=== PATIENT | female | born 1990 | race Caucasian/White ===

== ENCOUNTER 2019-02-01 06:59 | Day surgery (SDC) | payer OTHER ==
[2019-01-28 15:31] VITALS: BMI 38.0
[~2019-02-01 06:59] MED LIST: DEXAMETHASONE SOD PHOSPHATE 10 MG/ML 1 ML VIAL IV ONE; HEPARIN SODIUM,PORCINE 5,000 UNIT/ML 1 ML VIAL SQ ONE; KETOROLAC 30 MG/ML 1 ML VIAL IVP SCH; LACTATED RINGERS 1,000 ML IV SCH; LIDOCAINE 1% 20 ML VIAL (10MG/ML) FOR IV START INTRADERMA PRN; METOCLOPRAMIDE 5 MG/ML 2 ML VIAL IVP PRN; ONDANSETRON 4 MG/2 ML VIAL IVP ONE; SCOPOLAMINE 1.5MG/72HR PATCH TRANSDERM ONE; ceFAZolin IN SWFI 2 GM/20 ML SYRINGE IVP ONE
--- NOTE | 2019-02-01 08:34 | P.GSHP ---
History of Present Illness H&P Date: 02/01/19 Chief Complaint: Incarcerated ventral hernia This a 28-year-old female who presents today for laparoscopic robotic-assisted repair of incarcerated ventral hernia. Patient developed a mass after her which was located just above her umbilicus. Past Medical History Additional Past Medical History / Comment(s): hx. heart murmur, anemia, asthma as a child History of Any Multi-Drug Resistant Organisms: None Reported Past Surgical History: Section Additional Past Surgical History / Comment(s): wisdom teeth removed, C/S 7 weeks ago Past Anesthesia/Blood Transfusion Reactions: Previous Problems w/ Anesthesia Additional Past Anesthesia/Blood Transfusion Reaction / Comment(s): epidural started wearing off during C/S Smoking Status: Current every day smoker - Past Family History Mother Family Medical History: No Reported History Medications and Allergies Home Medications Medication Instructions Recorded Confirmed Type Ferrous Sulfate [Feosol] 325 mg PO BID 01/28/19 02/01/19 History Allergies Allergy/AdvReac Type Severity Reaction Status Date / Time Penicillins Allergy Unknown Verified 02/01/19 07:09 Childhood Surgical - Exam Vital Signs Temp Pulse Resp BP Pulse Ox 99.1 F 77 16 119/71 95 02/01/19 07:20 02/01/19 07:20 02/01/19 07:20 02/01/19 07:20 02/01/19 07:20 - General well developed, well nourished, no distress - Eyes PERRL - ENT normal pinna - Neck no masses - Respiratory normal expansion - Cardiovascular Rhythm: regular - Abdomen Abdomen: soft, non tender Hernia: incarcerated (Incarcerated ventral hernia, 3 cm in the suprabuccal position) - Integumentary no rash Assessment and Plan Assessment: Incarcerated ventral hernia. We'll perform laparoscopic robotic-assisted repair.
[2019-02-01] MEDS ORDERED: PROPOFOL 10 MG/ML 20 ML VIAL IV ONE (09:02)
[2019-02-01] MEDS ORDERED: ROCURONIUM BROMIDE 10 MG/ML 10 ML VIAL IV ONE (09:02)
[2019-02-01] MEDS ORDERED: HYDROmorphone (PF) 1 MG/ML ONE (09:02)
[2019-02-01] MEDS ORDERED: MIDAZOLAM 2 MG/2 ML VIAL ONE (09:02)
[2019-02-01] MEDS ORDERED: KETOROLAC 30 MG/ML 1 ML VIAL ONE (09:02)
[2019-02-01] MEDS ORDERED: fentaNYL (PF) 50 MCG/ML 2 ML AMP ONE (09:02)
[2019-02-01] MEDS ORDERED: NEOSTIGMINE 1 MG/ML 10 ML VIAL ONE (09:02)
[2019-02-01] MEDS ORDERED: GLYCOPYRROLATE 0.2 MG/ML 2 ML VIAL ONE (09:02)
[2019-02-01] MEDS ORDERED: LIDOCAINE 1% INJ 10MG/ML (20 ML MDV) ONE (09:02)
[2019-02-01] MEDS ORDERED: BUPIVACAINE (PF) 0.25% 30 ML VIAL SQ ONE ×2 (09:48)
[2019-02-01 10:38] VITALS: TEMP 98.4
--- NOTE | 2019-02-01 10:43 | P.OP ---
Date of Procedure: 02/01/19 Preoperative Diagnosis: Incarcerated ventral hernia Postoperative Diagnosis: Incarcerated ventral hernia Adhesions Procedure(s) Performed: Laparoscopic robotic-assisted repair of incarcerated ventral hernia Anesthesia: ORSY Surgeon: Zenon Sexton Pathology: other (Omentum) Condition: stable Disposition: PACU Description of Procedure: The patient was placed on the operating table in the supine position. He received general anesthesia. His abdomen was prepped and draped usual fashion. Using a 5 mm optical trocar under direct visualization the peritoneal cavity was entered in the left upper quadrant. The abdomen was then insufflated. The laparoscope was placed back into the perineal cavity. Next a 8 mm robotic trocar was placed in the left lower quadrant and a 12 mm robotic trocar was placed in the left lateral position. The original 5 mm trocar was exchanged for a 8 mm robotic trocar. The patient's placed in the left side up position. And the patient was docked to the robot. The patient was noted to have adhesions in the lower midline related to her previous . The adhesions were lysed using sharp dissection electrocautery. The incisional hernia was visualized. The incarcerated omentum was dissected free and transected with left cautery. The specimens of pathology. Using hook cautery the peritoneum over the incisional hernia was excised. The fascial opening was repaired using 0V LOC suture. Next a piece of 11 cm round ventral light ST mesh was placed into the. Cavity and secured with 2 OV lock suture. The patient was undocked the robot. The needles were retrieved. The fascia of the 12 mm trocar site was closed with 0 Ethibond suture. Skin was closed interrupted 3-0 Monocryl suture. Dermabond dressings was applied. Patient tolerated procedure well and was sent to recovery room stable condition.
[2019-02-01] MEDS: HYDROmorphone 0.5 MG/0.5 ML SYRINGE IVP PRN ×3 (10:50→11:08)
[2019-02-01 11:01] VITALS: RESP 16
[2019-02-01] MEDS ORDERED: HYDROcodone/APAP 5-325MG 1 EACH TAB PO ONE (12:00)
[2019-02-01 12:23] VITALS: BP 162/99; PULSE 73
== END 2019-02-01 12:45 | disposition home or self-care (01) ==
LOC: OR 06:59
PROVIDERS: ATTEND Surgery
DX: K43.6 Other and unspecified ventral hernia with obstruction, without gangrene (principal); F17.200 Nicotine dependence, unspecified, uncomplicated; Z88.0 Allergy status to penicillin; E66.9 Obesity, unspecified; Z68.38 Body mass index [BMI] 38.0-38.9, adult
CPT/HCPCS: 81025; 88302; 49653; C1781; J2250; J1644; J1100; J2710; J2405; J2001; J3010; J1885; J1170 ×2; J2704

== ENCOUNTER 2024-04-07 02:20 | Emergency (ER) | payer OTHER ==
[2024-04-07 02:25] VITALS: PULSE 75
[2024-04-07] MEDS: LIDOCAINE VISCOUS 2% 15 ML CUP MUCOUS MEM ONE (03:25)
--- NOTE | 2024-04-07 03:27 | ED ---
ENT HPI - General Chief complaint: Dental/Oral Stated complaint: Oral Pain Time Seen by Provider: 04/07/24 03:25 Source: patient, RN notes reviewed Mode of arrival: ambulatory Limitations: no limitations - History of Present Illness Initial comments: 33-year-old female presenting to the ER with a chief complaint of dental pain. Patient states they are scheduled to have teeth pulled and dentures fitted by dentist in [facility]. They states they accidentally missed their appointment as it was scheduled extremely far out from when they made the appointment that they missed it. He states for the past couple of days they have been having an increase in dental pain. No fevers, tongue swelling or throat swelling. No sore throat. Patient was started on clindamycin per see PCP yesterday. Patient is taking [place] 10s prescribe a pain management. They took 2 [place] tens and an ibuprofen prior to arrival. Patient has tried [id number] Orajel and numbing mouthwashes without relief. Patient states they woke up this evening crying due to the pain. Which brought him to the ER. No other complaints. - Related Data Home Medications Medication Instructions Recorded Confirmed Cetirizine HCl [Zyrtec] 10 mg PO DAILY 08/27/22 08/29/22 Dextroamphetamine/Amphetamine 30 mg PO TID 08/27/22 08/29/22 [Adderall] Fexofenadine HCl [Yani Allergy] 180 mg PO DAILY 08/27/22 08/29/22 Meloxicam [Mobic] 15 mg PO DAILY 08/27/22 08/29/22 Memantine [Namenda] 5 mg PO BID 08/27/22 08/29/22 Montelukast [Singulair] 10 mg PO DAILY 08/27/22 08/29/22 Testosterone 0.35 ml IM Q96H 08/27/22 08/29/22 busPIRone HCL [Buspar] 30 mg PO TID 08/27/22 08/29/22 Allergies Allergy/AdvReac Type Severity Reaction Status Date / Time erythromycin base Allergy Rash/Hives Verified 04/07/24 08:49 Penicillins Allergy Unknown Verified 04/07/24 02:25 Childhood Review of Systems ROS Statement: Those systems with pertinent positive or pertinent negative responses have been documented in the HPI. ROS Other: All systems not noted in ROS Statement are negative. Past Medical History Past Medical History: Asthma, Hearing Disorder / Deafness, Hyperlipidemia Additional Past Medical History / Comment(s): Hx heart murmur, anemia, asthma as a child. States one Dr said she had an enlarged heart and another one said she didn't, was supposed to see a Delicatessen Department Manager every 6 months but because of Covid she hasnt. Varicose veins. Hyperlipidemia - untreated. States "variable BP, goes high and low. Profuse sweating at times. Sensitive skin. States hearing problems, supposed to wear hearing aids but doesn't. History of Any Multi-Drug Resistant Organisms: MRSA Date of last positivie culture/infection: Unknown MDRO Source:: ingrown hair Past Surgical History: Section, Hernia Repair Additional Past Surgical History / Comment(s): [place] teeth removed. Past Anesthesia/Blood Transfusion Reactions: Previous Problems w/ Anesthesia, Motion Sickness Additional Past Anesthesia/Blood Transfusion Reaction / Comment(s): Epidural started wearing off during Section. Past Psychological History: ADD/ADHD, Anxiety, Depression Smoking Status: Current every day smoker Past Alcohol Use History: None Reported Past Drug Use History: Marijuana - Past Family History Mother Family Medical History: Cancer Additional Family Medical History / Comment(s): Breast cancer. General Exam Limitations: no limitations General appearance: alert, in no apparent distress ENT exam: Present: other (Multiple fractured teeth. Enamel region. No drainable abscess. Oropharynx patent.) Neck exam: Present: normal inspection. Absent: tenderness, meningismus, lymphadenopathy Respiratory exam: Present: normal lung sounds bilaterally. Absent: respiratory distress, wheezes, rales, rhonchi, stridor Cardiovascular Exam: Present: regular rate, normal rhythm, normal heart sounds. Absent: systolic murmur, diastolic murmur, rubs, gallop, clicks Skin exam: Present: warm, dry, intact, normal color. Absent: rash Course Vital Signs 04/07/24 04/07/24 02:22 04:30 Temperature 97.5 F L 97.8 F Pulse Rate 75 75 Respiratory 20 18 Rate Blood Pressure 150/89 139/80 O2 Sat by Pulse 100 98 Oximetry Procedures - Nerve Block Local Anesthetic Used: MARCAINE 0.25% with EPI Amount of anesthesia used: 5 Side: left Intraoral Nerve Block: infraorbital Procedure Successful: Yes Patient Tolerated Procedure: well Medical Decision Making - Medical Decision Making Was pt. sent in by a medical professional or institution ([facility], ELECTRICITY TRADER, urgent care, hospital, or detention...) When possible be specific @ -No Did you speak to anyone other than the patient for history (EMS, parent, family, police, friend...)? What history was obtained from this source @ -No Did you review nursing and triage notes (agree or disagree)? Why? @ -I reviewed and agree with nursing and triage notes Were old charts reviewed (outside hosp., previous admission, EMS record, old EKG, old radiological studies, urgent care reports/EKG's, detention records)? Report findings @ -No old charts were reviewed Differential Diagnosis (chest pain, altered mental status, abdominal pain women, abdominal pain men, vaginal bleeding, weakness, fever, dyspnea, syncope, headache, dizziness, GI bleed, back pain, seizure, CVA, palpatations, mental health, musculoskeletal)? @ -Dental carry, abscess, fractured tooth This is determined to be all- inclusive EKG interpreted by me (3pts min.). @ -None done X-rays interpreted by me (1pt min.). @ -None done CT interpreted by me (1pt min.). @ -None done U/S interpreted by me (1pt. min.). @ -None done What testing was considered but not performed or refused? (CT, X-rays, U/S, la bs)? Why? @ -None What meds were considered but not given or refused? Why? @ -None Did you discuss the management of the patient with other professionals (professionals i.e. [facility], ELECTRICITY TRADER, lab, RT, psych nurse, social security specialist, swiss type screw machine operator, teacher, chief learning officer, family independence case manager)? Give summary @ -No Was smoking cessation discussed for >3mins.? @ -No Was critical care preformed (if so, how long)? @ -No Were there social determinants of health that impacted care today? How? (Homelessness, low income, unemployed, alcoholism, drug addiction, transportation, low edu. Level, literacy, decrease access to med. care, retirement, rehab)? @ -No Was there de-escalation of care discussed even if they declined (Discuss DNR or withdrawal of care, Hospice)? DNR status @ -No What co-morbidities impacted this encounter? (DM, HTN, Smoking, COPD, CAD, Cancer, CVA, ARF, Chemo, Hep., AIDS, mental health diagnosis, sleep apnea, morbid obesity)? @ -None Was patient admitted / discharged? Hospital course, mention meds given and route, prescriptions, significant lab abnormalities, going to OR and other pertinent info. @ -Discharge. 33-year-old female presented to the ER with a chief complaint of dental pain. History and physical exam completed. Vitals within normal limits. Patient is interested in on exam. Exam remarkable for enamel erosion and multiple teeth with fractures present. No drainable abscess. No lower jaw, cheek or tongue swelling. Nerve block placed with success of pain relief. Tylenol 3 starter pack given. Advise close follow-up with dentist. I also advised patient to continue taking clindamycin as prescribed by PCP and complete full course. Strict return parameters discussed. Patient discharged stable condition. Patient reports rest understanding agree with care plan. Case discussed with ED attending, Dr. Arteaga. Undiagnosed new problem with uncertain prognosis? @ -No Drug Therapy requiring intensive monitoring for toxicity (Heparin, Nitro, Insulin, Cardizem)? @ -No Were any procedures done? @ -No Diagnosis/symptom? @ -Dental pain Acute, or Chronic, or Acute on Chronic? @ -Acute Uncomplicated (without systemic symptoms) or Complicated (systemic symptoms)? @ -Uncomplicated Side effects of treatment? @ -No Exacerbation, Progression, or Severe Exacerbation? @ -No Poses a threat to life or bodily function? How? (Chest pain, [place], [place], pneumonia, PE, COPD, DKA, ARF, appy, cholecystitis, CVA, Diverticulitis, Homicidal, Suicidal, threat to staff... and all critical care pts) @ -No Disposition Clinical Impression: Pain, dental Disposition: HOME SELF-CARE Condition: Stable Instructions (If sedation given, give patient instructions): Toothache (ED) Additional Instructions: Continue taking clindamycin as prescribed. Follow-up with dentist. Return to the ER for any new or worsening concerns. Is patient prescribed a controlled substance at d/c from ED?: No Referrals: Roman Garsia DO [Primary Care Provider] - 1-2 days Time of Disposition: 03:56
[2024-04-07] MEDS: LIDOCAINE 1% INJ 10MG/ML (20 ML MDV) SQ ONE (03:43)
[2024-04-07] MEDS: ACET/COD 300 MG/30 MG STARTER PACK 6 TAB BTL PO STA (04:07)
[2024-04-07] MEDS: BUPIVACAIN-EPI 0.25%-1:200,000 30 ML VIAL SQ STA (04:12)
[2024-04-07 04:31] VITALS: BP 139/80; RESP 18; TEMP 97.8
== END 2024-04-07 04:31 | disposition home or self-care (01) ==
LOC: EC 02:20
CPT/HCPCS: 64400; 96372; 99282

== ENCOUNTER 2024-04-07 08:43 | Emergency (ER) | payer OTHER ==
--- NOTE | 2024-04-07 09:10 | ED ---
ENT HPI - General Chief complaint: Dental/Oral Stated complaint: dental pain Time Seen by Provider: 04/07/24 08:49 Source: patient, RN notes reviewed Mode of arrival: ambulatory Limitations: no limitations - History of Present Illness Initial comments: 33-year-old female presents emergency department with chief complaint of dental pain. Patient was seen here is on current clindamycin did receive a dental block but states pain is returned. Unable to get into a dentist today. Patient - Related Data Home Medications Medication Instructions Recorded Confirmed Cetirizine HCl [Zyrtec] 10 mg PO DAILY 08/27/22 08/29/22 Dextroamphetamine/Amphetamine 30 mg PO TID 08/27/22 08/29/22 [Adderall] Fexofenadine HCl [Yani Allergy] 180 mg PO DAILY 08/27/22 08/29/22 Meloxicam [Mobic] 15 mg PO DAILY 08/27/22 08/29/22 Memantine [Namenda] 5 mg PO BID 08/27/22 08/29/22 Montelukast [Singulair] 10 mg PO DAILY 08/27/22 08/29/22 Testosterone 0.35 ml IM Q96H 08/27/22 08/29/22 busPIRone HCL [Buspar] 30 mg PO TID 08/27/22 08/29/22 Allergies Allergy/AdvReac Type Severity Reaction Status Date / Time erythromycin base Allergy Rash/Hives Verified 04/07/24 08:49 Penicillins Allergy Unknown Verified 04/07/24 02:25 Childhood Review of Systems ROS Statement: Those systems with pertinent positive or pertinent negative responses have been documented in the HPI. ROS Other: All systems not noted in ROS Statement are negative. Past Medical History Past Medical History: Asthma, Hearing Disorder / Deafness, Hyperlipidemia Additional Past Medical History / Comment(s): Hx heart murmur, anemia, asthma as a child. States one Dr said she had an enlarged heart and another one said she didn't, was supposed to see a Hired Hand every 6 months but because of Covid she hasnt. Varicose veins. Hyperlipidemia - untreated. States "variable BP, goes high and low. Profuse sweating at times. Sensitive skin. States hearing problems, supposed to wear hearing aids but doesn't. History of Any Multi-Drug Resistant Organisms: MRSA Date of last positivie culture/infection: Unknown MDRO Source:: ingrown hair Past Surgical History: Section, Hernia Repair Additional Past Surgical History / Comment(s): [place] teeth removed. Past Anesthesia/Blood Transfusion Reactions: Previous Problems w/ Anesthesia, Motion Sickness Additional Past Anesthesia/Blood Transfusion Reaction / Comment(s): Epidural started wearing off during Section. Past Psychological History: ADD/ADHD, Anxiety, Depression Smoking Status: Current every day smoker Past Alcohol Use History: None Reported Past Drug Use History: Marijuana - Past Family History Mother Family Medical History: Cancer Additional Family Medical History / Comment(s): Breast cancer. General Exam Limitations: no limitations General appearance: alert, in no apparent distress Head exam: Present: atraumatic, normocephalic, normal inspection Eye exam: Present: normal appearance, PERRL, EOMI. Absent: scleral icterus, conjunctival injection, periorbital swelling ENT exam: Present: mucous membranes moist. Absent: normal exam, normal oropharynx (Edentulous, poor dentition, multiple dental caries and missing dentition, no drainable abscesses) Neck exam: Present: normal inspection, full ROM. Absent: tenderness, meningismus, lymphadenopathy Respiratory exam: Present: normal lung sounds bilaterally. Absent: respiratory distress, wheezes, rales, rhonchi, stridor Cardiovascular Exam: Present: regular rate, normal rhythm, normal heart sounds. Absent: systolic murmur, diastolic murmur, rubs, gallop, clicks Course Vital Signs 04/07/24 08:47 Temperature 98.2 F Pulse Rate 73 Respiratory 24 Rate Blood Pressure 117/80 O2 Sat by Pulse 100 Oximetry Medical Decision Making - Medical Decision Making Was pt. sent in by a medical professional or institution (, PA, POLYMERIZATION SUPERVISOR, urgent care, hospital, or [facility]...) When possible be specific @ -No Did you speak to anyone other than the patient for history (EMS, parent, family, police, friend...)? What history was obtained from this source @ -No Did you review nursing and triage notes (agree or disagree)? Why? @ -I reviewed and agree with nursing and triage notes Were old charts reviewed (outside hosp., previous admission, EMS record, old EKG, old radiological studies, urgent care reports/EKG's, [facility] records)? Report findings @ -No old charts were reviewed Differential Diagnosis (chest pain, altered mental status, abdominal pain women, abdominal pain men, vaginal bleeding, weakness, fever, dyspnea, syncope, headache, dizziness, GI bleed, back pain, seizure, CVA, palpatations, mental health, musculoskeletal)? @ -Dental carry, dental abscess dental infection EKG interpreted by me (3pts min.). @ -None X-rays interpreted by me (1pt min.). @ -None done CT interpreted by me (1pt min.). @ -None done U/S interpreted by me (1pt. min.). @ -None done What testing was considered but not performed or refused? (CT, X-rays, U/S, labs)? Why? @ -None What meds were considered but not given or refused? Why? @ -None Did you discuss the management of the patient with other professionals (professionals i.e. , PA, POLYMERIZATION SUPERVISOR, lab, RT, psych nurse, oncology social work, data technical lead, teacher, multisensor intelligence officer, rifle case repairer)? Give summary @ -No Was smoking cessation discussed for >3mins.? @ -No Was critical care preformed (if so, how long)? @ -No Were there social determinants of health that impacted care today? How? (Homelessness, low income, unemployed, alcoholism, drug addiction, transportation, low edu. Level, literacy, decrease access to med. care, retirement, rehab)? @ -No Was there de-escalation of care discussed even if they declined (Discuss DNR or withdrawal of care, Hospice)? DNR status @ -No What co-morbidities impacted this encounter? (DM, HTN, Smoking, COPD, CAD, Cancer, CVA, ARF, Chemo, Hep., AIDS, mental health diagnosis, sleep apnea, morbid obesity)? @ -None Was patient admitted / discharged? Hospital course, mention meds given and route, prescriptions, significant lab abnormalities, going to OR and other pertinent info. @ -Discharge patient has poor dentition currently on antibiotics was provided analgesics return transfer discussed Undiagnosed new problem with uncertain prognosis? @ -No Drug Therapy requiring intensive monitoring for toxicity (Heparin, Nitro, Insulin, Cardizem)? @ -No Were any procedures done? @ -No Diagnosis/symptom? @ -Dental pain, dental infection Acute, or Chronic, or Acute on Chronic? @ -Acute Uncomplicated (without systemic symptoms) or Complicated (systemic symptoms)? @ -Uncomplicated Side effects of treatment? @ -No Exacerbation, Progression, or Severe Exacerbation? @ -No Poses a threat to life or bodily function? How? (Chest pain, [place], [place], pneumonia, PE, COPD, DKA, ARF, appy, cholecystitis, CVA, Diverticulitis, Homicidal, Suicidal, threat to staff... and all critical care pts) @ -No Disposition Clinical Impression: Pain, dental Disposition: HOME SELF-CARE Condition: Stable Instructions (If sedation given, give patient instructions): Toothache (ED) Additional Instructions: Please return to the Emergency Department if symptoms worsen or any other concerns. Is patient prescribed a controlled substance at d/c from ED?: No Referrals: Roman Garsia DO [Primary Care Provider] - 1-2 days Time of Disposition: 09:09
[2024-04-07] MEDS: HYDROmorphone 1 MG/ML 1 ML SYRINGE IM STA (09:16)
[2024-04-07] MEDS: LIDOCAINE VISCOUS 2% 15 ML CUP MUCOUS MEM ONE (09:17)
[2024-04-07 09:28] VITALS: BP 120/76; PULSE 74; RESP 20; TEMP 98
== END 2024-04-07 09:28 | disposition home or self-care (01) ==
LOC: EC 08:43
CPT/HCPCS: 96372; 99285

== ENCOUNTER 2024-08-21 14:33 | Emergency (ER) | payer OTHER ==
[2024-08-21 14:40] VITALS: RESP 16; TEMP 97.6
--- NOTE | 2024-08-21 15:11 | ED ---
General Adult HPI - General Chief complaint: Chest Pain Stated complaint: Difficulty breathing; chest pain Time Seen by Provider: 08/21/24 14:40 Source: patient, RN notes reviewed, old records reviewed Mode of arrival: ambulatory Limitations: no limitations - History of Present Illness Initial comments: This is a 34-year-old male who presents to the emergency department stating that he was in an argument that was quite intense and he started having chest tightness and getting tingling around his lips and in his hands. Patient states he does have a history of anxiety but this did not feel the same as his previous anxiety. Patient denies palpitations. Patient denies any recent fever chills or cough. Patient has abdominal pain patient has nausea vomiting. Patient denies diabetes. Patient states he has a history of high blood pressure and hi gh cholesterol. Patient denies swelling to the legs or calf tenderness - Related Data Home Medications Medication Instructions Recorded Confirmed Cetirizine HCl [Zyrtec] 10 mg PO DAILY 08/27/22 08/29/22 Dextroamphetamine/Amphetamine 30 mg PO TID 08/27/22 08/29/22 [Adderall] Fexofenadine HCl [Yani Allergy] 180 mg PO DAILY 08/27/22 08/29/22 Meloxicam [Mobic] 15 mg PO DAILY 08/27/22 08/29/22 Memantine [Namenda] 5 mg PO BID 08/27/22 08/29/22 Montelukast [Singulair] 10 mg PO DAILY 08/27/22 08/29/22 Testosterone 0.35 ml IM Q96H 08/27/22 08/29/22 busPIRone HCL [Buspar] 30 mg PO TID 08/27/22 08/29/22 Allergies Allergy/AdvReac Type Severity Reaction Status Date / Time erythromycin base Allergy Rash/Hives Verified 08/21/24 14:39 Penicillins Allergy Unknown Verified 08/21/24 14:39 Childhood Review of Systems ROS Statement: Those systems with pertinent positive or pertinent negative responses have been documented in the HPI. ROS Other: All systems not noted in ROS Statement are negative. Past Medical History Past Medical History: Asthma, Hearing Disorder / Deafness, Hyperlipidemia Additional Past Medical History / Comment(s): Hx heart murmur, anemia, asthma as a child. States one Dr said she had an enlarged heart and another one said she didn't, was supposed to see a [employer] every 6 months but because of Covid she hasnt. Varicose veins. Hyperlipidemia - untreated. States "variable BP, goes high and low. Profuse sweating at times. Sensitive skin. States hearing problems, supposed to wear hearing aids but doesn't. History of Any Multi-Drug Resistant Organisms: MRSA Date of last positivie culture/infection: Unknown MDRO Source:: ingrown hair Past Surgical History: Section, Hernia Repair Additional Past Surgical History / Comment(s): [place] teeth removed. Past Anesthesia/Blood Transfusion Reactions: Previous Problems w/ Anesthesia, Motion Sickness Additional Past Anesthesia/Blood Transfusion Reaction / Comment(s): Epidural started wearing off during Section. Past Psychological History: ADD/ADHD, Anxiety, Depression Smoking Status: Former smoker Past Alcohol Use History: None Reported Past Drug Use History: Marijuana - Past Family History Mother Family Medical History: Cancer Additional Family Medical History / Comment(s): Breast cancer. General Exam - General Exam Comments Initial Comments: GENERAL: Patient is well-developed and well-nourished. Patient is nontoxic and well- hydrated and is in mild distress. ENT: Neck is soft and supple. No significant lymphadenopathy is noted. Oropharynx is clear. Moist mucous membranes. Neck has full range of motion without eliciting any pain. EYES: The sclera were anicteric and conjunctiva were pink and moist. Extraocular movements were intact and pupils were equal round and reactive to light. Eyelids were unremarkable. PULMONARY: Unlabored respirations. Good breath sounds bilaterally. No audible rales rhonchi or wheezing was noted. CARDIOVASCULAR: There is a regular rate and rhythm without any murmurs gallops or rubs. ABDOMEN: Soft and nontender with normal bowel sounds. SKIN: Skin is clear with no lesions or rashes and otherwise unremarkable. NEUROLOGIC: Patient is alert and oriented x3. Cranial nerves II through XII are grossly intact. Motor and sensory are also intact. Normal speech, volume and content. Symmetrical smile. MUSCULOSKELETAL: Normal extremities with adequate strength and full range of motion. No lower extremity swelling or edema. No calf tenderness. LYMPHATICS: No significant lymphadenopathy is noted PSYCHIATRIC: Patient seems very anxious and is currently hyperventilating Limitations: no limitations Course Vital Signs 08/21/24 14:37 Temperature 97.6 F Pulse Rate 77 Respiratory 16 Rate Blood Pressure 145/89 O2 Sat by Pulse 100 Oximetry Medical Decision Making - Medical Decision Making EKG is interpreted by myself. EKG shows a sinus rhythm at 71 bpm WA 142 QRS is 83 QT interval is 361 QTc is 384. Patient's EKG shows no ST segment elevation. Was pt. sent in by a medical professional or institution ([facility], [employer] ENGINEERING PROFESSOR, urgent care, hospital, or fci...) When possible be specific @ -No Did you speak to anyone other than the patient for history (EMS, parent, family, police, friend...)? What history was obtained from this source @ -No Did you review nursing and triage notes (agree or disagree)? Why? @ -I reviewed and agree with nursing and triage notes Were old charts reviewed (outside hosp., previous admission, EMS record, old EKG, old radiological studies, urgent care reports/EKG's, fci records)? Report findings @ -No old charts were reviewed Differential Diagnosis? @ -Differential Mental Health Depression, anxiety, bipolar, psychosis, schizophrenia, borderline personality, situational depression, adjustment disorder, behavioral disorder, brain tumor, malingering, substance abuse, encephalopathy, medication reaction, dementia, hypothyroidism, degenerative neurologic disorder, lupus.... This is not meant to be all-inclusive list EKG interpreted by me (3pts min.). @ -As above X-rays interpreted by me (1pt min.). @ -Chest x-ray shows no acute abnormality CT interpreted by me (1pt min.). @ -None done U/S interpreted by me (1pt. min.). @ -None done What testing was considered but not performed or refused? (CT, X-rays, U/S, labs)? Why? @ -None What meds were considered but not given or refused? Why? @ -None Did you discuss the management of the patient with other professionals (professionals i.e. [facility], ELECTRONICS ENGINEERING PROFESSOR, lab, RT, psych nurse, social work faculty member, policy writer, teacher, hospital admissions officer, disease case manager)? Give summary @ -No Was smoking cessation discussed for >3mins.? @ -No Was critical care preformed (if so, how long)? @ -No Were there social determinants of health that impacted care today? How? (Homele ssness, low income, unemployed, alcoholism, drug addiction, transportation, low edu. Level, literacy, decrease access to med. care, halfway, rehab)? @ -No Was there de-escalation of care discussed even if they declined (Discuss DNR or withdrawal of care, Hospice)? DNR status @ -No What co-morbidities impacted this encounter? (DM, HTN, Smoking, COPD, CAD, Cancer, CVA, ARF, Chemo, Hep., AIDS, mental health diagnosis, sleep apnea, morbid obesity)? @ -None Was patient admitted / discharged? Hospital course, mention meds given and route, prescriptions, significant lab abnormalities, going to OR and other pertinent info. @ -After patient received 1 mg of Ativan he was feeling considerably better and back to his baseline he had no symptoms at this time. Patient's lab work came back within normal range x-ray came without abnormality. Patient feels comfortable being discharged home Undiagnosed new problem with uncertain prognosis? @ -No Drug Therapy requiring intensive monitoring for toxicity (Heparin, Nitro, Insulin, Cardizem)? @ -No Were any procedures done? @ -No Diagnosis/symptom? @ -Default Acute, or Chronic, or Acute on Chronic? @ -Acute Uncomplicated (without systemic symptoms) or Complicated (systemic symptoms)? @ -Complicated Side effects of treatment? @ -No Exacerbation, Progression, or Severe Exacerbation? @ -No Poses a threat to life or bodily function? How? (Chest pain, [place], [place], pneumonia, PE, COPD, DKA, ARF, appy, cholecystitis, CVA, Diverticulitis, Homicidal, Suicidal, threat to staff... and all critical care pts) @ -No - Lab Data Result diagrams: 08/21/24 15:23 08/21/24 15:23 Lab Results 08/21/24 08/21/24 08/21/24 Range/Units 15:23 15:23 15:23 WBC 20.6 H (3.8-10.6) k/uL RBC 5.20 (4.30-5.90) m/uL Hgb 16.5 (13.0-17.5) gm/dL Hct 48.5 (39.0-53.0) % MCV 93.3 (80.0-100.0) fL MCH 31.7 (25.0-35.0) pg MCHC 34.0 (31.0-37.0) g/dL RDW 12.2 (11.5-15.5) % Plt Count 316 (150-450) k/uL MPV 7.2 Neutrophils % 81 % Lymphocytes % 12 % Monocytes % 3 % Eosinophils % 2 % Basophils % 1 % Neutrophils # 16.7 H (1.3-7.7) k/uL Lymphocytes # 2.5 (1.0-4.8) k/uL Monocytes # 0.6 (0-1.0) k/uL Eosinophils # 0.4 (0-0.7) k/uL Basophils # 0.1 (0-0.2) k/uL Sodium 140 (137-145) mmol/L Potassium 4.3 (3.5-5.1) mmol/L Chloride 107 (98-107) mmol/L Carbon Dioxide 20 L (22-30) mmol/L Anion Gap 13 mmol/L BUN 16 (9-20) mg/dL Creatinine 0.92 (0.66-1.25) mg/dL Est GFR (CKD-EPI)AfAm >90 (>60 ml/min/1.73 sqM) Est GFR (CKD-EPI)NonAf >90 (>60 ml/min/1.73 sqM) Glucose 99 (74-99) mg/dL Calcium 10.4 H (8.4-10.2) mg/dL Magnesium 1.6 (1.6-2.3) mg/dL Total Bilirubin 1.3 (0.2-1.3) mg/dL AST 41 (17-59) U/L ALT 37 (4-49) U/L Alkaline Phosphatase 61 (38-126) U/L Troponin I <0.012 (0.000-0.034) ng/mL Total Protein 8.3 H (6.3-8.2) g/dL Albumin 5.1 H (3.5-5.0) g/dL Disposition Clinical Impression: Anxiety, Hyperventilating Disposition: HOME SELF-CARE Condition: Good Instructions (If sedation given, give patient instructions): Anxiety (ED) Is patient prescribed a controlled substance at d/c from ED?: No Referrals: Roman Garsia DO [Primary Care Provider] - 1-2 days Time of Disposition: 16:08
[2024-08-21] MEDS: LORazepam 2 MG/ML INJ IV STA (15:18)
[2024-08-21] MEDS: NITROGLYCERIN OINT 1 INCH/GM PACKET TOPICAL STA (15:18)
[2024-08-21] MEDS: ASPIRIN 81 MG PO STA (15:19)
[2024-08-21 15:31] LABS: Basophils # (A) 0.1 k/uL (0-0.2); Basophils % (A) 1 %; Eosinophils # (A) 0.4 k/uL (0-0.7); Eosinophils % (A) 2 %; HCT 48.5 % (39.0-53.0); HGB 16.5 gm/dL (13.0-17.5); Lymphocytes # (A) 2.5 k/uL (1.0-4.8); Lymphocytes % (A) 12 %; MCH 31.7 pg (25.0-35.0); MCV 93.3 fL (80.0-100.0); Mean Platelet Volume 7.2; Monocytes # (A) 0.6 k/uL (0-1.0); Monocytes % (A) 3 %; Neutrophils # (A) 16.7 k/uL (1.3-7.7); Neutrophils % (A) 81 %; Platelet Count 316 k/uL (150-450); RDW 12.2 % (11.5-15.5); WBC 20.6 k/uL (3.8-10.6)
--- NOTE | 2024-08-21 15:45 | XR ---
EXAMINATION TYPE: XR chest 2V DATE OF EXAM: 08/21/2024 3:37 PM COMPARISON: None. CLINICAL INDICATION: Male, 34 years old with history of Chest Pain; [facility] TECHNIQUE: XR chest 2V Frontal and lateral views of the chest. FINDINGS: Lungs/Pleura: There is no evidence of pleural effusion, focal consolidation, or pneumothorax. Pulmonary vascularity: Unremarkable. Heart/mediastinum: Cardiomediastinal silhouette is unremarkable. Musculoskeletal: No acute osseous pathology. Other findings: None IMPRESSION: No acute cardiopulmonary disease/process. [facility], , 08/21/2024 3:43 PM
[2024-08-21 15:46] LABS: ALT 37 U/L (4-49); AST 41 U/L (17-59); African American GFR (CKD) >90 (>60 ml/min/1.73 sqM); Albumin 5.1 g/dL (3.5-5.0); Alkaline Phosphatase 61 U/L (38-126); Anion Gap 13 mmol/L; Blood Urea Nitrogen 16 mg/dL (9-20); Calcium 10.4 mg/dL (8.4-10.2); Carbon Dioxide 20 mmol/L (22-30); Chloride 107 mmol/L (98-107); Glucose 99 mg/dL (74-99); Magnesium 1.6 mg/dL (1.6-2.3); Non-African American GFR(CKD) >90 (>60 ml/min/1.73 sqM); Potassium 4.3 mmol/L (3.5-5.1); Sodium 140 mmol/L (137-145); Total Bilirubin 1.3 mg/dL (0.2-1.3); Total Protein 8.3 g/dL (6.3-8.2)
[2024-08-21 16:23] VITALS: BP 123/88; PULSE 71
== END 2024-08-21 16:30 | disposition home or self-care (01) ==
LOC: EC 14:33
DX: F41.9 Anxiety disorder, unspecified (principal); R06.4 Hyperventilation; Z88.0 Allergy status to penicillin; Z88.1 Allergy status to other antibiotic agents; Z87.891 Personal history of nicotine dependence
CPT/HCPCS: 36415; 93005; 80053; 83735; 84484; 85025; 71046; 99285; 96374; J2060

== ENCOUNTER 2024-11-20 15:37 | Emergency (ER) | payer OTHER ==
[2024-11-20 15:44] VITALS: RESP 20; TEMP 97.9
[2024-11-20] MEDS: SODIUM CHLORIDE 0.9% 1,000 ML IV STA (16:31)
[2024-11-20] MEDS: LIDOCAINE 4% PATCH TOPICAL STA (16:31)
[2024-11-20] MEDS: ASPIRIN 81 MG PO STA (16:31)
[2024-11-20] MEDS: ONDANSETRON 4 MG/2 ML VIAL IVP STA (16:32)
[2024-11-20] MEDS: HYDROmorphone 0.5 MG/0.5 ML SYRINGE IVP STA (16:32)
[2024-11-20 16:48] LABS: Basophils # (A) 0.07 10*3/uL (0.00-0.10); Basophils % (A) 0.8 %; Eosinophils # (A) 0.27 10*3/uL (0.04-0.35); Eosinophils % (A) 2.9 %; HCT 39.7 % (39.6-50.0); HGB 14.1 g/dL (13.0-17.0); Lymphocytes # (A) 3.21 10*3/uL (0.90-5.00); Lymphocytes % (A) 34.4 %; MCH 32.7 pg (27.0-32.0); MCHC 35.5 g/dL (32.0-37.0); MCV 92.1 fL (80.0-97.0); Mean Platelet Volume 9.7 fL (9.5-12.2); Monocytes # (A) 0.54 10*3/uL (0.20-1.00); Monocytes % (A) 5.8 %; Neutrophils % (A) 55.8 %; Platelet Count 333 10*3/uL (140-440); RBC 4.31 10*6/uL (4.40-5.60); RDW 12.9 % (11.5-14.5); WBC 9.32 10*3/uL (4.50-10.00)
[2024-11-20 17:02] LABS: ALT 37 U/L (4-49); AST 36 U/L (17-59); African American GFR (CKD) >90 (>60 ml/min/1.73 sqM); Albumin 4.9 g/dL (3.5-5.0); Alkaline Phosphatase 51 U/L (38-126); Anion Gap 14 mmol/L; Blood Urea Nitrogen 13 mg/dL (9-20); Calcium 10.4 mg/dL (8.4-10.2); Carbon Dioxide 22 mmol/L (22-30); Chloride 103 mmol/L (98-107); Glucose 98 mg/dL (74-99); Lipase 83 U/L (23-300); Magnesium 1.3 mg/dL (1.6-2.3); Non-African American GFR(CKD) >90 (>60 ml/min/1.73 sqM); Sodium 139 mmol/L (137-145); Total Bilirubin 0.6 mg/dL (0.2-1.3); Total Protein 7.6 g/dL (6.3-8.2)
--- NOTE | 2024-11-20 17:08 | XR ---
EXAMINATION TYPE: XR chest 2V DATE OF EXAM: 11/20/2024 4:39 PM COMPARISON: Chest radiographs from 08/21/2024. CLINICAL INDICATION: Male, 34 years old with history of Chest Pain; [facility] TECHNIQUE: XR chest 2V Frontal and lateral views of the chest. FINDINGS: Lungs/Pleura: There is no evidence of pleural effusion, focal consolidation, or pneumothorax. Pulmonary vascularity: Unremarkable. Heart/mediastinum: Cardiomediastinal silhouette is unremarkable. Musculoskeletal: No acute osseous pathology. IMPRESSION: No acute cardiopulmonary disease/process. [facility], , 11/20/2024 5:06 PM
[2024-11-20 17:09] LABS: NT-Pro-B-Type Natriuretic Pept <20 pg/mL
[2024-11-20 17:14] LABS: Partial Thromboplastin Time 22.4 sec (22.0-30.0)
--- NOTE | 2024-11-20 17:38 | US ---
EXAMINATION TYPE: US venous doppler duplex LE BI DATE OF EXAM: 11/20/2024 4:07 PM COMPARISON: NONE CLINICAL INDICATION: Male, 34 years old with history of calf pain; pain in left calf, pt had a darline pl aced in left calf 2 years ago., Pain TECHNIQUE: The lower extremity deep venous system is examined utilizing real time linear array sonog myla with graded compression, color doppler sonography, and spectral doppler. SIDE PERFORMED: Bilateral FINDINGS: VESSELS IMAGED: Common Femoral Vein Deep Femoral Vein Greater Saphenous Vein * Femoral Vein Popliteal Vein Small Saphenous Vein * Proximal Calf Veins (* superficial vessels) Right Leg: Negative for DVT, Color Doppler imaging shows patency of the vessels. Spectral waveforms are within normal limits. Left Leg: Negative for DVT, Color Doppler imaging shows patency of the vessels. Spectral waveforms a re within normal limits. IMPRESSION: No ultrasound evidence for deep venous thrombosis. [facility], , 11/20/2024 5:35 PM
[2024-11-20 18:20] LABS: INR 0.9 (<1.2); Prothrombin Time 10.6 sec (10.0-12.5)
[2024-11-20 18:33] VITALS: BP 123/81; PULSE 80
[2024-11-20] MEDS: MAGNESIUM SULFATE-D5W PMX 1 GM in DEXTROSE/WATER 1 100ML.BAG IVPB ONE (18:33)
--- NOTE | 2024-11-20 18:49 | ED ---
General Adult HPI - General Chief complaint: Chest Pain Stated complaint: chest pain Time Seen by Provider: 11/20/24 15:58 Source: patient, RN notes reviewed, old records reviewed Mode of arrival: ambulatory Limitations: no limitations - History of Present Illness Initial comments: Patient is a 34-year-old that identifies as male and goes by Parker who presents emergency department for chest pain. He has a history of chest wall pain. States it is recurrent nearly on a daily basis. Does have a cardiology appointment on Thursday. Has not been previously diagnosed with anything. History of asthma and hyperlipidemia. States chest pain is over the right chest and radiates around the side of the ribs. Worse with movement. Worse with deep inspiration. Does not go to the left chest. No cardiac history. Patient does take testosterone. Denies any other acute complaints. Presents for further evaluation.States chest pain today has been going on since she awoke this morning, and also had it yesterday. More or less has it on a daily basis.Patient is concerned for possible blood clots in the legs as there has been intermittent swelling. Currently not swollen. Also gets intermittent calf pain. - Related Data Home Medications Medication Instructions Recorded Confirmed Cetirizine HCl [Zyrtec] 10 mg PO DAILY 08/27/22 08/29/22 Dextroamphetamine/Amphetamine 30 mg PO TID 08/27/22 08/29/22 [Adderall] Fexofenadine HCl [Yani Allergy] 180 mg PO DAILY 08/27/22 08/29/22 Meloxicam [Mobic] 15 mg PO DAILY 08/27/22 08/29/22 Memantine [Namenda] 5 mg PO BID 08/27/22 08/29/22 Montelukast [Singulair] 10 mg PO DAILY 08/27/22 08/29/22 Testosterone 0.35 ml IM Q96H 08/27/22 08/29/22 busPIRone HCL [Buspar] 30 mg PO TID 08/27/22 08/29/22 Previous Rx's Medication Instructions Recorded Ibuprofen [Motrin] 800 mg PO Q8H PRN 7 Days #21 tab 11/20/24 Lidocaine 5% Patch [Lidoderm 5% 1 patch TOPICAL DAILY PRN 7 Days 11/20/24 Patch] #14 patch Allergies Allergy/AdvReac Type Severity Reaction Status Date / Time erythromycin base Allergy Rash/Hives Verified 11/20/24 15:43 Penicillins Allergy Unknown Verified 11/20/24 15:43 Childhood Review of Systems ROS Statement: Those systems with pertinent positive or pertinent negative responses have been documented in the HPI. Review of Systems: CONST: Denies fever EYES: Denies blurry vision ENT: Denies nasal congestion C/V: Endorses chest pain RESP: Denies shortness of breath GI: Denies abdominal pain : Denies dysuria SKIN: Denies rash. MSK: Denies joint pain. NEURO: Denies headache ROS Other: All systems not noted in ROS Statement are negative. Past Medical History Past Medical History: Asthma, Hearing Disorder / Deafness, Hyperlipidemia Additional Past Medical History / Comment(s): Hx heart murmur, anemia, asthma as a child. States one Dr said she had an enlarged heart and another one said she didn't, was supposed to see a [employer] every 6 months but because of Covid she hasnt. Varicose veins. Hyperlipidemia - untreated. States "variable BP, goes high and low. Profuse sweating at times. Sensitive skin. States hearing problems, supposed to wear hearing aids but doesn't. History of Any Multi-Drug Resistant Organisms: MRSA Date of last positivie culture/infection: Unknown MDRO Source:: ingrown hair Past Surgical History: Section, Hernia Repair Additional Past Surgical History / Comment(s): [place] teeth removed. Past Anesthesia/Blood Transfusion Reactions: Previous Problems w/ Anesthesia, Motion Sickness Additional Past Anesthesia/Blood Transfusion Reaction / Comment(s): Epidural s tarted wearing off during Section. Past Psychological History: ADD/ADHD, Anxiety, Depression Smoking Status: Former smoker, Vaper Past Alcohol Use History: None Reported Past Drug Use History: Marijuana - Past Family History Mother Family Medical History: Cancer Additional Family Medical History / Comment(s): Breast cancer. General Exam - General Exam Comments Initial Comments: General: Appears in mild distress secondary to pain. HEAD: Normal with no signs of head trauma. EYES: PERRLA, EOMI, conjunctiva normal, no discharge. ENT: Hearing grossly intact, normal oropharynx. RESPIRATORY: Clear breath sounds bilaterally. No wheezes, rales, or rhonchi. C/V: Regular rate and rhythm. S1 and S2 auscultated, no edema, peripheral pulses 2+ and intact throughout. Chest pain is reproducible on palpation of the right ribs and chest wall. ABD: Abd is soft, nontender, nondistended EXT: Normal range of motion, no obvious deformity SKIN: No rashes or lesions observed on exposed skin. NEURO: Alert and oriented x 4. Limitations: no limitations Course Vital Signs 11/20/24 11/20/24 15:41 18:33 Temperature 97.9 F Pulse Rate 125 H 80 Respiratory 20 20 Rate Blood Pressure 163/93 123/81 O2 Sat by Pulse 99 98 Oximetry Medical Decision Making - Medical Decision Making Was pt. sent in by a medical professional or institution (, PA, INFORMATICS CONSULTANT, urgent care, hospital, or skilled nursing...) When possible be specific @ -No Did you speak to anyone other than the patient for history (EMS, parent, family, police, friend...)? What history was obtained from this source @ -No Did you review nursing and triage notes (agree or disagree)? Why? @ -I reviewed and agree with nursing and triage notes Were old charts reviewed (outside hosp., previous admission, EMS record, old EKG, old radiological studies, urgent care reports/EKG's, skilled nursing records)? Report findings @ -No old charts were reviewed Differential Diagnosis (chest pain, altered mental status, abdominal pain women, abdominal pain men, vaginal bleeding, weakness, fever, dyspnea, syncope, headache, dizziness, GI bleed, back pain, seizure, CVA, palpatations, mental health, musculoskeletal)? @ -Differential Chest Pain: Stable Angina, Unstable Angina, STEMI, NSTEMI Aortic Dissection, Pneumothorax, Musculoskeletal, Esophageal Spasm GERD, Cholecystitis, Pancreatitis, Zoster, this is not meant to be an all-inclusive list. EKG interpreted by me (3pts min.). @ -As above X-rays interpreted by me (1pt min.). @ -Chest x-ray shows no obvious acute cardiopulmonary process. CT interpreted by me (1pt min.). @ -None done U/S interpreted by me (1pt. min.). @ -Bilateral ultrasound of the lower extremities negative for DVT What testing was considered but not performed or refused? (CT, X-rays, U/S, erna bs)? Why? @ -None What meds were considered but not given or refused? Why? @ -None Did you discuss the management of the patient with other professionals (professionals i.e. , PA, INFORMATICS CONSULTANT, lab, RT, psych nurse, social studies teacher, tool checker, teacher, sales promotion officer, rn case mgr)? Give summary @ -No Was smoking cessation discussed for >3mins.? @ -No Was critical care preformed (if so, how long)? @ -No Were there social determinants of health that impacted care today? How? (Homelessness, low income, unemployed, alcoholism, drug addiction, transportation, low edu. Level, literacy, decrease access to med. care, skilled nursing, rehab)? @ -No Was there de-escalation of care discussed even if they declined (Discuss DNR or withdrawal of care, Hospice)? DNR status @ -No What co-morbidities impacted this encounter? (DM, HTN, Smoking, COPD, CAD, Cancer, CVA, ARF, Chemo, Hep., AIDS, mental health diagnosis, sleep apnea, morbid obesity)? @ -None Was patient admitted / discharged? Hospital course, mention meds given and route, prescriptions, significant lab abnormalities, going to OR and other pertinent info. @ -Patient presents with chronic chest wall pain. Worse over the last 1 to 2 days. Over the right side of his chest. He is also concerned for possible blood clots in his legs as he states occasionally swelling go down. Denies any significant swelling or pain at this time. We obtain cardiopulmonary workup. Patient administered IV fluids as well as analgesic medications. Vitals are within acceptable limits other than initial tachycardia. Patient was in agreement this plan. Chest x-ray unremarkable. EKG unremarkable. Ultrasounds negative for DVT. Laboratory studies remarkable for mild hypomagnesemia of 1.3. Troponin undetectable. BNP negative. D-dimer within normal limits for the patient's age. Magnesium was supplemented. On reevaluation, patient's pain is resolved. I dis cussed results. Patient was discharged home at this time. Recommend follow-up with filtration supervisor this week. They were in agreement this plan. I instructed the patient to follow up with their PCP in the next 1-3 days. I explained that the patient should return to the emergency department if they experience any worsening symptoms. Strict return precautions were discussed with the patient. The patient expressed understanding of these instructions. I answered all questions that the patient had. The patient was discharged home in good condition with their prescriptions and follow up information. Undiagnosed new problem with uncertain prognosis? @ -No Drug Therapy requiring intensive monitoring for toxicity (Heparin, Nitro, Insulin, Cardizem)? @ -No Were any procedures done? @ -No Diagnosis/symptom? @ -Chest wall pain Acute, or Chronic, or Acute on Chronic? @ -Acute on chronic Uncomplicated (without systemic symptoms) or Complicated (systemic symptoms)? @ -Uncomplicated Side effects of treatment? @ -No Exacerbation, Progression, or Severe Exacerbation? @ -No Poses a threat to life or bodily function? How? (Chest pain, [place], [place], pneumonia, PE, COPD, DKA, ARF, appy, cholecystitis, CVA, Diverticulitis, Homicidal, Suicidal, threat to staff... and all critical care pts) @ -Unlikely at this time - Lab Data Result diagrams: 11/20/24 16:37 11/20/24 16:37 Lab Results 11/20/24 11/20/24 11/20/24 Range/Units 16:37 16:37 16:37 WBC 9.32 (4.50-10.00) 10*3/uL RBC 4.31 L (4.40-5.60) 10*6/uL Hgb 14.1 (13.0-17.0) g/dL Hct 39.7 (39.6-50.0) % MCV 92.1 (80.0-97.0) fL MCH 32.7 H (27.0-32.0) pg MCHC 35.5 (32.0-37.0) g/dL Plt Count 333 (140-440) 10*3/uL MPV 9.7 (9.5-12.2) fL Immature Gran % (Auto) 0.3 % Neutrophils % 55.8 % Lymphocytes % 34.4 % Monocytes % 5.8 % Eosinophils % 2.9 % Basophils % 0.8 % Immature Gran # 0.03 (0.00-0.04) 10*3/uL Neutrophils # 5.20 (1.80-7.70) 10*3/uL Lymphocytes # 3.21 (0.90-5.00) 10*3/uL Monocytes # 0.54 (0.20-1.00) 10*3/uL Eosinophils # 0.27 (0.04-0.35) 10*3/uL Basophils # 0.07 (0.00-0.10) 10*3/uL PT 10.6 (10.0-12.5) sec INR 0.9 (<1.2) APTT 22.4 (22.0-30.0) sec D-Dimer 0.36 (<0.60) mg/L FEU Sodium 139 (137-145) mmol/L Potassium 4.0 (3.5-5.1) mmol/L Chloride 103 (98-107) mmol/L Carbon Dioxide 22 (22-30) mmol/L Anion Gap 14 mmol/L BUN 13 (9-20) mg/dL Creatinine 1.02 (0.66-1.25) mg/dL Est GFR (CKD-EPI)AfAm >90 (>60 ml/min/1.73 sqM) Est GFR (CKD-EPI)NonAf >90 (>60 ml/min/1.73 sqM) Glucose 98 (74-99) mg/dL Calcium 10.4 H (8.4-10.2) mg/dL Magnesium 1.3 L (1.6-2.3) mg/dL Total Bilirubin 0.6 (0.2-1.3) mg/dL AST 36 (17-59) U/L ALT 37 (4-49) U/L Alkaline Phosphatase 51 (38-126) U/L Troponin I (0.000-0.034) ng/mL NT-Pro-B Natriuret Pep <20 pg/mL Total Protein 7.6 (6.3-8.2) g/dL Albumin 4.9 (3.5-5.0) g/dL Lipase 83 (23-300) U/L // Range/Units 16:37 WBC (4.50-10.00) 10*3/uL RBC (4.40-5.60) 10*6/uL Hgb (13.0-17.0) g/dL Hct (39.6-50.0) % MCV (80.0-97.0) fL MCH (27.0-32.0) pg MCHC (32.0-37.0) g/dL Plt Count (140-440) 10*3/uL MPV (9.5-12.2) fL Immature Gran % (Auto) % Neutrophils % % Lymphocytes % % Monocytes % % Eosinophils % % Basophils % % Immature Gran # (0.00-0.04) 10*3/uL Neutrophils # (1.80-7.70) 10*3/uL Lymphocytes # (0.90-5.00) 10*3/uL Monocytes # (0.20-1.00) 10*3/uL Eosinophils # (0.04-0.35) 10*3/uL Basophils # (0.00-0.10) 10*3/uL PT (10.0-12.5) sec INR (<1.2) APTT (22.0-30.0) sec D-Dimer (<0.60) mg/L FEU Sodium (137-145) mmol/L Potassium (3.5-5.1) mmol/L Chloride (98-107) mmol/L Carbon Dioxide (22-30) mmol/L Anion Gap mmol/L BUN (9-20) mg/dL Creatinine (0.66-1.25) mg/dL Est GFR (CKD-EPI)AfAm (>60 ml/min/1.73 sqM) Est GFR (CKD-EPI)NonAf (>60 ml/min/1.73 sqM) Glucose (74-99) mg/dL Calcium (8.4-10.2) mg/dL Magnesium (1.6-2.3) mg/dL Total Bilirubin (0.2-1.3) mg/dL AST (17-59) U/L ALT (4-49) U/L Alkaline Phosphatase (38-126) U/L Troponin I <0.012 (0.000-0.034) ng/mL NT-Pro-B Natriuret Pep pg/mL Total Protein (6.3-8.2) g/dL Albumin (3.5-5.0) g/dL Lipase (23-300) U/L - EKG Data -: EKG Interpreted by Me EKG Comments: 12-lead Electrocardiogram Interpretation Note EKG was reviewed and interpreted by myself. 12-lead ECG performed at 1551 is interpreted by me as revealing sinus tachycardia at a rate of 109 beats per minute. [place] is normal. [place] interval is 141 ms, QRS durations 88 ms, QTc is 1370 ms.. There were no ST or T wave abnormalities to suggest myocardial ischemia or injury. R wave progression across the precordium was satisfactory. By my interpretation this EKG is non-diagnostic for acute ischemia. Disposition Clinical Impression: Chest wall pain Disposition: HOME SELF-CARE Condition: Good Instructions (If sedation given, give patient instructions): Costochondritis (ED), Chest Wall Pain (ED) Prescriptions: Lidocaine 5% Patch [Lidoderm 5% Patch] 1 patch TOPICAL DAILY PRN 7 Days #14 patch PRN Reason: Pain Ibuprofen [Motrin] 800 mg PO Q8H PRN 7 Days #21 tab PRN Reason: Pain Is patient prescribed a controlled substance at d/c from ED?: No Referrals: Roman Garsia DO [Primary Care Provider] - 1-2 days Time of Disposition: 18:49
== END 2024-11-20 19:30 | disposition home or self-care (01) ==
LOC: EC 15:37
DX: G89.4 Chronic pain syndrome (principal); R07.89 Other chest pain; F17.290 Nicotine dependence, other tobacco product, uncomplicated; Z88.1 Allergy status to other antibiotic agents; Z88.0 Allergy status to penicillin
CPT/HCPCS: 36415; 93005; 85379; 83880; 80053; 83690; 83735; 84484; 85025; 85610; 85730; 71046; 93970; 99285; 96365; 96375 ×2; 96361 ×2; J2405; J3475; J1171